=== PATIENT | male | born 1970 | race American Indian/Alaskan Native ===

== ENCOUNTER 2016-11-28 10:42 | Emergency (ER) | payer OTHER ==
[2016-11-28 10:54] VITALS: BP 125/89
--- NOTE | 2016-11-28 14:36 | Emergency Department Report ---
Entered by DULCE JEAN, acting as scribe for CHONG RUSSELL PA. HPI - General Chief Complaint: Upper Respiratory Infection Time Seen by Provider: 11/28/16 11:57 - HPI HPI: 46 y/o male patient presents for evaluation of cold like symptoms for the past week. He reports headache, sore throat, cough, sinus pain, and nasal congestion for a week. Denies SOB or chest pain. States he is out of medication for diabetes. Last glucose was 166 ED Past Medical Hx - Past Medical History Previous Medical History?: Yes Hx Diabetes: Yes - Surgical History Past Surgical History?: No - Family History Family history: diabetes, hypertension - Social History Smoking Status: Current Every Day Smoker Substance Use Type: Alcohol, Prescribed - Medications Home Medications: Home Medications Medication Instructions Recorded Confirmed Last Taken Type metFORMIN [Glucophage] 500 mg PO DAILY 05/28/13 08/07/15 08/06/15 History ED Review of Systems ROS: Stated complaint: HEADACHE AND COLD SX/CP Other details as noted in HPI Comment: All other systems reviewed and negative Constitutional: denies: chills, fever Eyes: denies: eye pain, eye discharge, vision change ENT: throat pain, congestion, other (sinus pain). denies: ear pain Respiratory: cough. denies: shortness of breath, wheezing Cardiovascular: denies: chest pain, palpitations Endocrine: no symptoms reported Gastrointestinal: denies: abdominal pain, nausea, diarrhea Genitourinary: denies: urgency, dysuria Musculoskeletal: denies: back pain, joint swelling, arthralgia Skin: denies: rash, lesions Neurological: headache. denies: weakness, paresthesias Psychiatric: denies: anxiety, depression Physical Exam - Physical Exam Vital Signs: Vital Signs 11/28/16 10:50 Temperature 98.1 F Pulse Rate 81 Respiratory 20 Rate Blood Pressure 125/89 O2 Sat by Pulse 100 Oximetry General: 46 year old male, non toxic appearing, no apparent distress Physical Exam: Physical Exam: Head: Normocephalic, atraumatic Mouth: Moist, no pharygeal erythema Uvula is midline and oral airway is patent. No facial swelling. No peritonsillar abscesses. Nose: Normal external appearance, no drainage. nasal congestion, mucosal swelling and erythema, maxillary tenderness Neck: Supple, no C-spine tenderness, no tracheal deviation. Nontender to palpation. no adenopathy Ears: Bilateral TMs ar without any redness, swelling, or drainage. Bilateral EAC without any redness, swelling, or drainage. Abdomen: Soft, nontender to palpation in all quadrants, normal bowel sounds in all quadrants and negative CVA tenderness bilaterally. Eyes: Bilateral pupils equal and reactive to light, bilateral EOM intact. Bilateral sclera and conjunctiva without injection. Normal accommodation. Lungs: Clear to auscultation bilaterally, no rhonchi, wheezes, or rales. Normal work of breathing. No use of accessory muscles Extremities: No CCE. +2 pulses. No neurovascular compromise Cardiovascular: S1-S2, regular rate, regular rhythm. No murmurs. Skin: Clean, dry, and intact with no rash and no lesions Psych: Normal mood and behavior ED Course Vital Signs 11/28/16 10:50 Temperature 98.1 F Pulse Rate 81 Respiratory 20 Rate Blood Pressure 125/89 O2 Sat by Pulse 100 Oximetry - Reevaluation(s) Reevaluation #1: 11/28/16 14:29 stable throughout ED stay ED Medical Decision Making - Medical Decision Making ed Course:Pt with acute sinusitis, cough that's been ongoing for 7 days.pt has diabetes and requested a refill on his metformin 500 mg twice a day. His also requesting to be assigned to a primary care physician. pt is stable and discharged home with family in stable condition on prescription for metformin, Augmentin, Zyrtec-D and Flonase given the fact that he is diabetic placed on antibiotic.. Blood Glucose in triage was 166. Critical care attestation.: If time is entered above; I have spent that time in minutes in the direct care of this critically ill patient, excluding procedure time. ED Disposition Clinical Impression: Medication refill, Cough Acute maxillary sinusitis Qualifiers: Recurrence: recurrent Qualified Code(s): J01.01 - Acute recurrent maxillary sinusitis Disposition: DISCHARGED TO HOME OR SELFCARE Is pt being admited?: No Does the pt Need Aspirin: No Condition: Stable Instructions: Acute Cough (ED), Sinusitis (ED), Diabetes Mellitus Type 2 in Adults (ED) Additional Instructions: Please follow up with primary care physician to manage Diabetes Take medication as prescribed Referrals: JAY ACUÑA MD [Staff Physician] - [facility] - [facility]16 Forms: Work/School Release Form(ED) This documentation as recorded by the MIRANDA villareal SHALANE,accurately reflects the service I personally performed and the decisions made by ,CHONG RUSSELL PA.
== END 2016-11-28 14:43 | disposition home or self-care (01) ==
LOC: ED 10:42
DX: R05 Cough (principal); E11.9 Type 2 diabetes mellitus without complications; F17.200 Nicotine dependence, unspecified, uncomplicated
CPT/HCPCS: 82962; 99282

== ENCOUNTER 2018-02-18 21:16 | Emergency (ER) | payer SELFPAY ==
[2018-02-18] MEDS ORDERED: TYLENOL PO ONE (21:50)
[2018-02-18] MEDS ORDERED: TYLENOL ONE (21:54)
[2018-02-18 22:09] LABS: Basophils # (Auto) 0.1 K/mm3 (0.0-0.1); Basophils % (Auto) 0.8 % (0.0-1.8); Eosinophils # (Auto) 0.2 K/mm3 (0.0-0.4); Eosinophils % (Auto) 1.7 % (0.0-4.3); Hematocrit 44.2 % (35.5-45.6); Lymphocytes # (Auto) 4.1 K/mm3 (1.2-5.4); Lymphocytes % (Auto) 47.1 % (13.4-35.0); Mean Corpuscular HGB Conc 34 % (32-34); Mean Corpuscular Hemoglobin 31 pg (28-32); Mean Corpuscular Volume 92 fl (84-94); Monocytes # (Auto) 0.8 K/mm3 (0.0-0.8); Monocytes % (Auto) 8.8 % (0.0-7.3); Platelet Count 238 K/mm3 (140-440); Red Blood Count 4.82 M/mm3 (3.65-5.03); Red Cell Distribution Width 13.7 % (13.2-15.2)
[2018-02-18 22:21] LABS: BUN/Creatinine Ratio 13; Blood Urea Nitrogen 13 mg/dL (9-20); Calcium 9.7 mg/dL (8.4-10.2); Hemolysis Index 14
[2018-02-19] MEDS ORDERED: BACTRIM DS PO ONE (00:26)
--- NOTE | 2018-02-19 01:28 | Emergency Department Report ---
HPI - General Chief Complaint: Extremity Problem,Nontraumatic Time Seen by Provider: 02/19/18 00:04 - HPI HPI: 47-year-old male presents to the emergency department with complaint of some pain and questionable infection to the left great toe that has been going on for the past 1-2 days. He started developing some pain to the inside of that toe, around the nail, and thought he was seeing some accumulation of pus. He denies any redness to the skin or any swelling of the toe. He some antibiotic cream and says that there has been some improvement but he is a diabetic and therefore wanted to get checked out. He takes metformin 500 mg twice daily but says he's been out of the medication for the past 5 days. He denies any fever, chills, sweats, shortness of breath. ED Past Medical Hx - Past Medical History Previous Medical History?: Yes Hx Diabetes: Yes - Surgical History Past Surgical History?: No - Social History Smoking Status: Current Every Day Smoker Substance Use Type: None - Medications Home Medications: Home Medications Medication Instructions Recorded Confirmed Last Taken Type Amoxicillin/K Clav Tab [Augmentin 1 tab PO Q12HR #20 tab 11/28/16 Unknown Rx 875 mg] Cetirizine HCl/Pseudoephedrine 1 each PO BID #14 tab.er.12h 11/28/16 Unknown Rx [Allergy+Congestion Relf-D Tab] Fluticasone [Flonase] 1 spray NS QDAY #1 bottle 11/28/16 Unknown Rx Sulfamethoxazole/Trimethoprim 1 each PO BID #14 tablet 02/19/18 Unknown Rx [Bactrim DS TAB] metFORMIN [Glucophage] 500 mg PO DAILY #60 tablet 02/19/18 Unknown Rx ED Review of Systems ROS: Stated complaint: LEFT BIG TOE PAIN Other details as noted in HPI Comment: All other systems reviewed and negative Constitutional: denies: chills, fever Eyes: denies: eye pain, eye discharge, vision change ENT: denies: ear pain, throat pain Respiratory: denies: cough, shortness of breath, wheezing Cardiovascular: denies: chest pain, palpitations Gastrointestinal: denies: abdominal pain, nausea, diarrhea Genitourinary: denies: urgency, dysuria Musculoskeletal: arthralgia. denies: back pain Skin: denies: change in color, pruritus Neurological: denies: headache, weakness, paresthesias Physical Exam - Physical Exam Vital Signs: Vital Signs 02/18/18 02/18/18 02/18/18 21:24 21:46 22:05 Temperature 98.4 F 98.4 F Pulse Rate 83 84 Respiratory 18 18 18 Rate Blood Pressure 122/74 122/74 O2 Sat by Pulse 98 98 Oximetry Physical Exam: GENERAL: The patient is well-developed well-nourished. HENT: Normocephalic. Atraumatic. Patient has moist mucous membranes. EYES: Extraocular motions are intact. NECK: Supple. Trachea is midline. CHEST/LUNGS: Clear to auscultation. There is no respiratory distress noted. HEART/CARDIOVASCULAR: Regular. There is no tachycardia. There is no murmur. ABDOMEN: Abdomen is soft, nontender. Patient has normal bowel sounds. There is no abdominal distention. SKIN: Skin is warm and dry. Patient has a small area to the lateral inferior portion of the left great toenail that appears as if there could be a small purulent collection. There is no erythema, edema. NEURO: The patient is awake, alert, and oriented. The patient is cooperative. The patient has no focal neurologic deficits. The patient has normal speech and gait. MUSCULOSKELETAL: There is a small amount of tenderness to palpation to the left great toe just lateral to the toenail. There is no limitation range of motion. ED Course Vital Signs 02/18/18 02/18/18 02/18/18 21:24 21:46 22:05 Temperature 98.4 F 98.4 F Pulse Rate 83 84 Respiratory 18 18 18 Rate Blood Pressure 122/74 122/74 O2 Sat by Pulse 98 98 Oximetry ED Medical Decision Making - Lab Data Result diagrams: 02/18/18 21:59 02/18/18 21:59 - Medical Decision Making Patient presents with a 2 day history of some pain to the left great toe where he feels like he is developing a small infection. He is also diabetic and has been noncompliant with his diabetes medication over the past 5 days. His vital signs and stable throughout his ED course including being afebrile. Labs are unremarkable including no leukocytosis. Blood sugar was 100 despite his medication noncompliance. He does not appear in any acute distress. On examination of the toe, he has a little bit of tenderness to palpation Of the toenail there might be a very small area to the inferior lateral portion of the nailbed with there is a collection of pus because the area appears much electronics mechanic , whiter. However there is no current purulent discharge. There is no surrounding erythema or edema. Since the patient is diabetic and there is no obvious superficial purulent collection or paronychia, no incision or I&D was done at this time. However the patient will be started on antibiotics. He will be soaking his great toe in warm water. He has been given referrals for podiatry. He will return to the ER for any worsening of his symptoms or any acute distress. He was given a refill of his metformin. - Differential Diagnosis paronychia, cellulitis, ingrown toenail Critical Care Time: No Critical care attestation.: If time is entered above; I have spent that time in minutes in the direct care of this critically ill patient, excluding procedure time. ED Disposition Clinical Impression: Toe infection, History of diabetes mellitus Disposition: TO HOME OR SELFCARE Is pt being admited?: No Condition: Stable Instructions: Paronychia (ED) Additional Instructions: Please follow up with a bisque ware dipper in the next few days regarding your toe infection. Return to the emergency department immediately with any worsening of your symptoms, swelling of the toe, development of redness to the toe, development of fever, or with any acute distress. Take the antibiotics as prescribed. I have given you a referral for 2 different podiatry groups. Prescriptions: metFORMIN [Glucophage] 500 mg PO DAILY #60 tablet Sulfamethoxazole/Trimethoprim [Bactrim DS TAB] 1 each PO BID #14 tablet Referrals: JUNE MONAE MD [Primary Care Provider] - 3-5 Days ARABELLA MAGAÑA MD [Staff Physician] - 3-5 Days ANMOL ESCALANTE DPM [Staff Physician] - 3-5 Days Time of Disposition: 01:46
[2018-02-19 01:55] VITALS: BP 126/78
== END 2018-02-19 01:54 | disposition home or self-care (01) ==
LOC: ED 21:16
DX: L08.9 Local infection of the skin and subcutaneous tissue, unspecified (principal); E11.9 Type 2 diabetes mellitus without complications; F17.200 Nicotine dependence, unspecified, uncomplicated; Z79.899 Other long term (current) drug therapy
CPT/HCPCS: 36415; 80048; 85025; 99283